=== PATIENT | female | born 1975 | race Caucasian/White ===

== ENCOUNTER 2016-09-09 20:31 | Emergency (ER) | payer MEDICAID, OTHER ==
[~2016-09-09] VITALS: Ht 160 cm; Wt 68.0 kg
[2016-09-09 20:51] VITALS: Ht 160 cm; Wt 68.0 kg
[2016-09-09] MEDS ORDERED: HYDROCODONE/APAP (5/325) TAB PO ONE (22:00)
--- NOTE | 2016-09-09 22:29 | RADRPT ---
PROCEDURE: X-ray pelvis CLINICAL INDICATION: Fall with pelvic pain. TECHNIQUE: Single frontal view of the pelvis COMPARISON: None FINDINGS: No acute fracture or dislocation. Soft tissues unremarkable. IUD in place. IMPRESSION: No acute fracture. RPTAT: [facility] Physician Maria Victoria Date Time Electronically viewed and signed by Wiliam Raya Physician on 09/09/2016 22:29 RS/
--- NOTE | 2016-09-09 22:30 | RADRPT ---
PROCEDURE: XR Hip. CLINICAL INDICATION: Trauma. TECHNIQUE: AP and frog lateral views of the right hip were performed. COMPARISON: None. FINDINGS: There is normal mineralization and alignment. No fracture or osseous lesion is identified. There are normal joints without evidence of arthritis or effusion. The soft tissues are unremarkable. IMPRESSION: Unremarkable right hip. RPTAT: [facility] Physician Maria Victoria Date Time Electronically viewed and signed by Physician Maria Victoria on 09/09/2016 22:30 RS/
[2016-09-09] MEDS ORDERED: METH750T93 PO (22:56)
[2016-09-09] MEDS ORDERED: HYDR-902 PO (22:56)
[2016-09-09] MEDS ORDERED: IBUP800T25 PO (22:56)
--- NOTE | 2016-09-09 23:01 | ERD ---
ER Documentation Chief Complaint Date/Time DATE: 09/09/16 TIME: 22:58 Chief Complaint c/o left knee, right arm and left hip pain s/p mechanical slip and fall HPI This a 41-year-old female who is in a grocery store and she slipped and fell on wet floor. The family and the patient state there is no signs today and there is a wet floor but there was apparently a puddle of water. The patient slipped and fell. She is denies hitting her head or getting any loss of consciousness. She denies any headache or neck pain or back pain or upper extremity pain. Denies any chest pain abdominal pain. She is complaining of pain to her left great toe, left knee and right hip and right buttocks. The pain is sharp worse with movement better with rest. No lacerations does complain of a left knee contusion ROS All systems reviewed and are negative except as per history of present illness. Medications Home Meds Active Scripts Methocarbamol* (Robaxin*) 750 Mg Tablet, 750 MG PO TID, #20 TAB Prov:PANKAJ GARCIA DO 09/09/16 Hydrocodone/Acetaminophen ([place] 10-325 Tablet) 1 Each Tablet, 1 TAB PO Q6H Y for PAIN, #20 TAB Prov:ELIZABETH GARCIASTMARQUEZS A. DO 09/09/16 Ibuprofen* (Motrin*) 800 Mg Tab, 800 MG PO Q6H Y for PAIN AND OR ELEVATED TEMP, #30 TAB Prov:ELIZABETH GARCIASTOLOS Samantha. DO 09/09/16 PMhx/Soc History of Surgery: Yes (THYROIDECTOMY) Anesthesia Reaction: No Hx Neurological Disorder: No Hx Respiratory Disorders: No Hx Cardiac Disorders: No Hx Psychiatric Problems: No Hx Miscellaneous Medical Probl: Yes (THYROID CANCER) Hx Alcohol Use: No Hx Substance Use: No Hx Tobacco Use: No Smoking Status: Never smoker FmHx Family History: No coronary disease Physical Exam Vitals Vital Signs Date Time Temp Pulse Resp B/P Pulse Ox O2 Delivery O2 Flow Rate FiO2 09/09/16 20:51 98.3 90 18 124/76 96 Physical Exam Const: [Well-developed, well-nourished] Head: [Atraumatic, normocephalic] Eyes: [Normal Conjunctiva, PERRLA, EOMI, normal sclera, no nystagmus] ENT: [Normal External Ears, Nose and Mouth, moist mucus membranes.] Neck: [Full range of motion. No meningismus, no lymphadenopathy.] Resp: [Clear to auscultation bilaterally, no wheezing, rhonchi, rales] Cardio: [Regular rate and rhythm, no murmurs, S1 S2 present] Abd: [Soft, non tender x 4, non distended. Normal bowel sounds, no guarding or rebound, no pulsitile abdominal masses or bruits] Skin: [No petechiae or rashes, no ecchymosis , no maculopapular rash] Back: [No midline or flank tenderness] Ext: [No cyanosis, or edema, FROM x 4, normal inspection, neurovascularly intact x 4, some mild tenderness to the left great toe but no nail injury no signs of swelling or fracture clinically, there is a marcelle-sized contusion to the left kneecap. No swelling full range of motion without pain. There is also tenderness to the right buttocks on palpation is also tenderness to the right hip at the greater trochanter, full range of motion of hip] Neur: [Awake and alert, STR 5/5 x 4, sensation intact x 4, no focal findings, cerebellum intact] Psych: [Normal Mood and Affect] Results 24 hrs Current Medications Medications (Trade) Dose Ordered Sig/Adilson Route PRN Reason Start Time Stop Time Status Last Admin Dose Admin Acetaminophen/ Hydrocodone Bitart ([place] (5/325)) 2 tab ONCE ONCE PO 09/09/16 22:00 09/09/16 22:01 DC 09/09/16 22:25 Procedures/MDM PROCEDURE: XR Hip. CLINICAL INDICATION: Trauma. TECHNIQUE: AP and frog lateral views of the right hip were performed. COMPARISON: None. FINDINGS: There is normal mineralization and alignment. No fracture or osseous lesion is identified. There are normal joints without evidence of arthritis or effusion. The soft tissues are unremarkable. IMPRESSION: Unremarkable right hip. RPTAT: [facility] Physician Maria Victoria Date Time Electronically viewed and signed by Physician Maria Victoria on 09/09/2016 22:30 RS/ CC: PANKAJ GARCIA DO PROCEDURE: X-ray pelvis CLINICAL INDICATION: Fall with pelvic pain. TECHNIQUE: Single frontal view of the pelvis COMPARISON: None FINDINGS: No acute fracture or dislocation. Soft tissues unremarkable. IUD in place. IMPRESSION: No acute fracture. RPTAT: [facility] Wiliam Raya Physician Date Time Electronically viewed and signed by Wiliam Raya Physician on 09/09/2016 22:29 RS/ CC: PANKAJ GARCIA DO Departure Diagnosis: Primary Impression: Contusion of hip, right Additional Impression: Fall with no significant injury Encounter type: initial encounter Qualified Code: W19.XXXA - Fall with no significant injury, initial encounter Condition: Stable Patient Instructions: Hip Contusion, Fall Prevention PANKAJ GARCIA DO Sep 09, 2016 23:01
[2016-09-09] MEDS ORDERED: ONDA4TAB14 PO (23:17)
[2016-09-09] MEDS ORDERED: ONDANSETRON (ODT) 4 MG TAB ODT STA (23:18)
[2016-09-09 23:23] VITALS: BP 117/68; PULSE 82; RESP 18; TEMP 97.7
== END 2016-09-09 23:23 | disposition home or self-care (01) ==
LOC: FTE 20:31
DX: S70.01XA Contusion of right hip, initial encounter (principal); W01.0XXA Fall on same level from slipping, tripping and stumbling without subsequent striking against object, initial encounter; Z85.850 Personal history of malignant neoplasm of thyroid
CPT/HCPCS: 72170; 73510; Z7502; Z7610

== ENCOUNTER 2018-09-07 15:34 | Emergency (ER) | payer OTHER ==
[~2018-09-07] VITALS: Ht 162.6 cm; Wt 79.0 kg
[~2018-09-07 15:34] MED LIST: HYDR-3980 PO; IBUP800T48 PO; METH750T93 PO; ONDA4TAB14 PO
[2018-09-07 15:40] VITALS: Ht 162.6 cm; Wt 79.0 kg
[2018-09-07] MEDS ORDERED: LEVO150T7 PO (16:42)
[2018-09-07] MEDS ORDERED: ALBU2.5V3 NEB (16:43)
[2018-09-07] MEDS ORDERED: ACETAMINOPHEN 325 MG TAB PO ONE (18:00)
[2018-09-07] MEDS ORDERED: SOD CHLORIDE 0.9% 1,000 ML IV STA (18:48)
[2018-09-07] MEDS ORDERED: BELLADONNA/PHENOBARBITAL TAB PO STA (18:48)
[2018-09-07] MEDS ORDERED: LIDOCAINE/MYLANTA 40 ML BTL PO STA (18:48)
[2018-09-07] MEDS ORDERED: ONDANSETRON 4 MG INJ IV STA (18:48)
[2018-09-07] MEDS ORDERED: FAMOTIDINE 20 MG INJ IV STA (18:48)
--- NOTE | 2018-09-07 19:42 | ERD ---
ER Documentation Chief Complaint Chief Complaint bib ra for rt upper abd pain with nausea/vomiting x 2 hrs HPI This is a 43-year-old female with a past medical history of thyroid cancer status post thyroidectomy, now on Synthroid, asthma who is presenting with 1 day of moderate aching burning waxing and waning epigastric and right upper quadrant abdominal pain with nausea and a few episodes of nonbilious nonbloody vomiting, progressively worsening over the last 2 hours. The patient does not endorse any alleviating or exacerbating factors. She does not know if it is associated with eating. She does not endorse any constipation or diarrhea. She does not report any black or bloody or tarry stools. She does not report dysuria or hematuria or urgency or frequency. The patient does not endorse any vaginal bleeding or burning or pain or discharge. Her last menstrual period ended 4 days ago. She does not believe she could be . She does not endorse any chance of sexual transmitted infection. The patient denies feeling sick recently. The patient denies fever or chills. The patient has had no headache or vision changes. The patient does not endorse neck or back pain. The patient denies lightheadedness or dizziness. The patient has had no chest pain or trouble breathing. The patient has had no focal d eficits. The patient has had no weakness or numbness or tingling to the face or extremities. ROS All systems reviewed and are negative except as per history of present illness. Medications Home Meds Reported Medications Albuterol Sulfate* (Albuterol Sulfate* Neb) 0.083%-3 Ml Neb, 1.25 MG NEB NEEDED PRN for WHEEZING AND SOB, #30 VIAL 09/07/18 Levothyroxine Sodium* (Levothyroxine Sodium*) 150 Mcg Tablet, 150 MCG PO BEFORE BREAKFAST, #30 TAB 09/07/18 Discontinued Scripts Ondansetron (Ondansetron Odt) 4 Mg Tab.rapdis, 4 MG PO Q6H PRN for NAUSEA AND/OR VOMITING, #10 TAB Prov:PANKAJ GARCIA DO 09/09/16 Methocarbamol* (Robaxin*) 750 Mg Tablet, 750 MG PO TID, #20 TAB Prov:PANKAJ GARCIA DO 09/09/16 Hydrocodone/Acetaminophen ([place] 10-325 Tablet) 1 Each Tablet, 1 TAB PO Q6H PRN for PAIN, #20 TAB Prov:FABIANOS,ELIZABETHSTOLOS A. DO 09/09/16 Ibuprofen* (Motrin*) 800 Mg Tab, 800 MG PO Q6H PRN for PAIN AND OR ELEVATED TEMP, #30 TAB Prov:RADHA,ELIZABETHSTOLOS A. DO 09/09/16 Allergies Allergies: Coded Allergies: No Known Allergy (Unverified , 09/07/18) PMhx/Soc History of Surgery: Yes (THYROIDECTOMY) Anesthesia Reaction: No Hx Neurological Disorder: No Hx Respiratory Disorders: Yes (asthma) Hx Cardiac Disorders: No Hx Psychiatric Problems: No Hx Miscellaneous Medical Probl: Yes (THYROID CANCER) Hx Alcohol Use: No Hx Substance Use: No Hx Tobacco Use: No Smoking Status: Never smoker FmHx Family History: No diabetes Physical Exam Vitals Vital Signs Date Temp Pulse Resp B/P (MAP) Pulse Ox O2 O2 Flow FiO2 Time Delivery Rate 09/07/18 95 20 111/74 99 Room Air 18:11 (86) 09/07/18 96 22 105/74 95 Room Air 16:11 (84) 09/07/18 98.6 98 18 142/86 99 15:40 (104) Physical Exam Const: No acute distress Head: Atraumatic Eyes: Normal Conjunctiva ENT: Normal External Ears, Nose and Mouth. Neck: Full range of motion. No meningismus. Resp: Clear to auscultation bilaterally Cardio: Regular rate and rhythm, no murmurs Abd: Mild epigastric tenderness. Otherwise soft, non distended. No guarding or rebound. Normal bowel sounds Skin: No petechiae or rashes Back: No midline or flank tenderness Ext: No cyanosis, or edema Neur: Awake and alert Psych: Normal Mood and Affect Result Diagram: 09/07/18 1620 09/07/18 1620 Results 24 hrs Laboratory Tests Test 09/07/18 16:20 09/07/18 16:42 White Blood Count 20.3 10^3/ul Red Blood Count 5.11 10^6/ul Hemoglobin 14.1 g/dl Hematocrit 40.6 % Mean Corpuscular Volume 79.5 fl Mean Corpuscular Hemoglobin 27.6 pg Mean Corpuscular Hemoglobin Concent 34.7 g/dl Red Cell Distribution Width 13.9 % Platelet Count 374 10^3/UL Mean Platelet Volume 10.7 fl Immature Granulocytes % 0.400 % Neutrophils % 88.9 % Lymphocytes % 5.4 % Monocytes % 4.6 % Eosinophils % 0.3 % Basophils % 0.4 % Nucleated Red Blood Cells % 0.0 /100WBC Immature Granulocytes # 0.090 10^3/ul Neutrophils # 18.0 10^3/ul Lymphocytes # 1.1 10^3/ul Monocytes # 0.9 10^3/ul Eosinophils # 0.1 10^3/ul Basophils # 0.1 10^3/ul Nucleated Red Blood Cells # 0.0 10^3/ul Urine Color ML Urine Clarity SLIGHTLY CLOUDY Urine pH 5.0 Urine Specific [place] 1.023 Urine Ketones TRACE mg/dL Urine Nitrite NEGATIVE mg/dL Urine Bilirubin NEGATIVE mg/dL Urine Urobilinogen NEGATIVE mg/dL Urine Leukocyte Esterase NEGATIVE [place]/ul Urine Microscopic RBC 8 /HPF Urine Microscopic WBC 5 /HPF Urine Squamous Epithelial Cells FEW /HPF Urine Mucus MANY /HPF Urine Hemoglobin 2+ mg/dL Urine Glucose NEGATIVE mg/dL Urine Total Protein 1+ mg/dl Sodium Level 143 mmol/L Potassium Level 3.7 mmol/L Chloride Level 107 mmol/L Carbon Dioxide Level 22 mmol/L Anion Gap 14 Blood Urea Nitrogen 14 mg/dl Creatinine 0.70 mg/dl Est Glomerular Filtrat Rate mL/min > 60 mL/min Glucose Level 167 mg/dl Calcium Level 9.4 mg/dl Total Bilirubin 0.5 mg/dl Direct Bilirubin 0.00 mg/dl Indirect Bilirubin 0.5 mg/dl Aspartate Amino Transf (AST/SGOT) 24 IU/L Alanine Aminotransferase (ALT/SGPT) 25 IU/L Alkaline Phosphatase 120 IU/L Total Protein 8.6 g/dl Albumin 4.6 g/dl Globulin 4.00 g/dl Albumin/Globulin Ratio 1.15 Lipase 98 U/L POC Beta HCG, Qualitative NEGATIVE Current Medications Medications Dose Sig/Adilson Start Time Status Last (Trade) Ordered Route PRN Stop Time Admin Dose Reason Admin 650 mg ONCE ONCE 09/07/18 DC 09/07/18 Acetaminophen PO 18:00 18:05 (Tylenol 09/07/18 18:02 Tab) Sodium 1,000 ml @ Q1H STAT 09/07/18 09/07/18 Chloride 1,000 mls/hr IV 18:48 18:54 09/07/18 19:47 Ondansetron 4 mg ONCE STAT 09/07/18 DC 09/07/18 HCl (Zofran IV 18:48 18:53 Inj) 09/07/18 18:49 Famotidine 20 mg ONCE STAT 09/07/18 DC 09/07/18 (Pepcid Iv) IV 18:48 18:53 09/07/18 18:49 40 ml ONCE STAT 09/07/18 DC 09/07/18 Miscellaneous PO 18:48 18:53 Medication 09/07/18 18:49 (Gi Cocktail (2)) [place]/ 2 tab ONCE STAT 09/07/18 DC 09/07/18 Phenobarbital PO 18:48 18:53 () 09/07/18 18:49 Procedures/MDM MDM The patient's presentation warrants further investigation. Previous medical records, if available, were reviewed. LABS The patient's laboratory testing was obtained and reviewed. No emergent treatment was required unless described below. CBC: Leukocytosis, likely from an infectious etiology. No E/o anemia or thro mbocytopenia Chemistry: No E/o severe acidosis or alkalosis or renal failure or liver disease or diabetic ketoacidosis Lipase: No E/o pancreatitis Urine: No E/o acute infection. + hematuria IMAGING Imaging and Radiology interpretation reviewed. CT Abd/Pelvis FINDINGS: The lung bases are clear of any infiltrate or nodule. No effusion is seen. The liver is of normal size, contour and attenuation with no mass or ductal dilatation. No gallstones are visualized. No splenic, adrenal or pancreatic abnormalities present. Kidneys are of normal size and contour. No hydronephrosis, calculus or mass Is seen. Ureters are of normal course and caliber with no stone. No bladder mass or stone is present. Uterus and ovaries appear normal. There is an IUD within the endometrial canal. There is no a neurysm. No adenopathy is present. No bowel mass or obstruction is present. The appendix is normal. No phlegmon, ascites or pneumoperitoneum is visualized. The osseous structures are intact. IMPRESSION: No evidence of urolithiasis, obstructive uropathy, diverticulitis or appendicitis. Electronically viewed and signed by Osei Gallegos MD, MD on 09/07/2018 18:20 US Abd FINDINGS: The liver is of normal size, contour and echogenicity with no mass or intrahepatic ductal dilatation. Portal and hepatic vein are patent on color flow Doppler imaging. The common bile duct measures 2.3 millimeter in transverse diameter.No gallstones are identified. Gallbladder wall is not thickened and no abnormal pericholecystic fluid collection is seen. No sonographic Monson's sign was elicited during this exam. There is no ascites. The pancreas is normal with no mass or ductal dilatation. The right kidney measures 10.4 by 4.7 x 5.6 cm. No hydronephrosis, calculus or masses present. . There is no evidence of abdominal aortic aneurysm or caval thrombosis. IMPRESSION: No evidence of cholelithiasis, cholecystitis or biliary obstruction. Electronically viewed and signed by Osei Gallegos MD, MD on 09/07/2018 18:21 TREATMENT/DISPOSITION The patient presents with abdominal pain. The patient's pain is primarily epigastric in nature. Gastritis versus PUD versus GERD are all possibilities. The patient was treated with IV fluids, Zofran, Pepcid and a GI cocktail with improvement of her symptoms. The patient also endorsed right upper quadrant tenderness. The patient's ultrasound does not reveal any evidence of cholelithiasis or cholecystitis or biliary obstruction. The patient does not have any evidence of peritonitis. The patient does not have clinical symptoms concerning for mesenteric ischemia or ischemic colitis. The patient does not have left upper quadrant tenderness. I have low suspicion for pancreatitis. The patient does not have any right lower quadrant tenderness, or periumbilical tenderness. I have low suspicion for appendicitis. The patient does not have suprapubic tenderness. I have decreased suspicion for cystitis. The patient does not have any left lower quadrant tenderness, and I have low suspicion for diverticulosis or diverticulitis. The patient does not have any flank tenderness. I have decreased suspicion for nephrolithiasis or renal colic. The patient does not have any palpable pulsatile mass or severe abdominal pain radiating to the back. I have low suspicion for aortic aneurysm, dissection or rupture. The patient does have a leukocytosis, which could be from multiple etiologies. The patient does not meet SIRS criteria. The patient is not septic. I suspect that the patient's symptoms will be self-limited. I do not feel the patient would benefit from antibiotics at this time. DISCHARGE Upon reevaluation of the patient, symptoms have improved. No emergent diagnoses were identified. At this time, I feel that the patient stable for discharge. The patient was instructed to follow-up with a primary care physician in 1-3 days. The patient will be given strict precautions with which to return to the emergency department. Prescriptions: [place] The patient's blood pressure was elevated at greater than 120/80 while in the e mergency department. The patient was otherwise stable with no evidence of hypertensive urgency or emergency. The patient does not require admission for blood pressure control. I have discussed with the patient the risks of hypertension. I have instructed the patient to return to the ER for any new or worsening symptoms including chest pain, shortness of breath, headache, blurred vision, confusion, nausea, vomiting or LOC. I have advised the patient to follow up with the primary care physician for outpatient monitoring and treatment for hypertension in 1-3 days. Disclaimer: Inadvertent spelling and grammatical errors are likely due to EHR/dictation software use and do not reflect on the overall quality of patient care. Note that the electronic time recorded on this note does not necessarily reflect the actual time of the patient encounter. Departure Diagnosis: Primary Impression: Abdominal pain Abdominal location: epigastric Qualified Codes: R10.13 - Epigastric pain Additional Impressions: Nausea & vomiting Vomiting type: unspecified Vomiting Intractability: non-intractable Qualified Codes: R11.2 - Nausea with vomiting, unspecified Leukocytosis Leukocytosis type: unspecified Qualified Codes: D72.829 - Elevated white blood cell count, unspecified Hematuria Hematuria type: unspecified type Qualified Codes: R31.9 - Hematuria, unspecified Condition: Stable Patient Instructions: Abdominal Pain, Nausea and Vomiting-Adult Additional Instructions: Thank you for for coming to [facility] for your care today. Please ask your nurse or provider if you have questions about your care today and do not leave until all your questions have been answered. Please use any medications given as directed and follow-up with your doctor (or the doctor you were referred to) in the next 1-3 days. If you do not have a primary care doctor you may follow up at the [facility] or [facility] (listed below). You may also use motrin and tylenol as needed for fever and/or pain unless instructed otherwise by your provider or nurse. Indications for more urgent follow-up have been discussed, but you may return to the Emergency Department at ANY time for any worrisome or worsening symptoms. If you have abdominal pain, please know that no test or exam you received is perfect and you should follow up within 8 hours for continued pain. If you had any imaging studies today, such as an X-Ray or CT Scan, these studies will be reviewed later by a radiologist. You will be called if there are important findings that were not identified today, so make sure the contact information you provided at registration is correct. If you received any narcotic pain control medicine today, such as Vicodin, Morphine or Dilaudid, your coordination and judgment may be affected for a number of hours. Please do not drive or operate heavy machinery, and you may want someone to assist you at home. If you were given a prescription for narcotic medication, be aware that it is very addictive- use sparingly and only if necessary. PLEASE SEEK FURTHER EVALUATION AND MANAGEMENT AT YOUR DOCTORS OFFICE WITHIN THE NEXT 1-3 DAYS. IT IS YOUR RESPONSIBILITY TO MAKE AN APPOINTMENT FOR FOLOW-UP CARE. IF YOU HAVE A PRIMARY DOCTOR, PLEASE CALL THEIR OFFICE TO SCHEDULE AN APPOINTMENT FOR FOLLOW UP. IF YOU DO NOT HAVE A PRIMARY DOCTOR YOU CAN CALL OUR PHYSICIAN REFERRAL HOTLINE AT IF YOU CAN NOT AFFORD TO SEE A PHYSICIAN YOU CAN CHOSE FROM THE FOLLOWING [facility]: [facility] [address] [facility] [address] [facility] [address] [facility] [address] [facility] [address] [facility]. [address] OUMOU STROUD MD Sep 07, 2018 19:41
[2018-09-07] MEDS ORDERED: ONDA4TAB8 PO (19:43)
[2018-09-07] MEDS ORDERED: FAMO-96 PO (19:43)
[2018-09-07 19:54] VITALS: BP 124/85; PULSE 90; RESP 17
== END 2018-09-07 19:54 | disposition home or self-care (01) ==
LOC: E/R 15:34
DX: R10.13 Epigastric pain (principal); R11.2 Nausea with vomiting, unspecified; D72.829 Elevated white blood cell count, unspecified; R31.9 Hematuria, unspecified; J45.909 Unspecified asthma, uncomplicated; Z85.850 Personal history of malignant neoplasm of thyroid
CPT/HCPCS: 36415; 74176; 76705; 80053; 81001; 81025; 83690; 85025; 96374; 96375; J2405; J7030; Z7502; Z7610